=== PATIENT | male | born 1950 | race Caucasian/White ===

== ENCOUNTER 2016-07-12 10:38 | Outpatient (CLI) | payer MEDICARE ==
[2016-07-12 12:27] LABS: #Basophils 0.1 thou/uL (0.0-0.2); #Eosinphils 0.8 thou/uL (0.0-0.7); #Lymphocytes 3.4 thou/uL (1.20-3.40); #Monocytes 0.8 thou/uL (0.11-0.59); #Neutrophils 7.5 thou/uL (1.40-6.50); %Basophils 0.6 % (0.0-1.0); %Eosinophils 6.1 % (0.0-10.0); %Monocytes 6.3 % (0.0-10.0); Hematocrit 50.6 % (42.0-52.0); Mean Platelet Volume 8.7 fL (7.4-10.4); Red Blood Cell (RBC) Count 5.42 mill/uL (4.70-6.10); White Blood Cell (WBC) Count 12.5 thou/uL (4.8-10.8)
[2016-07-12 12:55] LABS: ALT (SGPT) 26 U/L (0-55); AST (SGOT) 22 U/L (5-34); Alkaline Phosphatase 102 U/L (40-150); Anion Gap 14 mmol/L (10-20); BUN (Urea Nitrogen) 16 mg/dL (8.4-25.7); Bilirubin, Total 0.3 mg/dL (0.2-1.2); Calc. Creatinine Clearance 0 mL/min (70-130); Calcium 8.8 mg/dL (7.8-10.44); Carbon Dioxide 24 mmol/L (23-31); Chloride 106 mmol/L (98-107); Estimated GFR-MDRD 69; Globulin 2.9 g/dL (2.4-3.5); LDL Cholesterol, Calculated 132 mg/dL
== END 2016-07-12 10:39 | disposition home or self-care (01) ==
LOC: HPCALD 10:38
PROVIDERS: ATTEND Family Medicine
DX: I10 Essential (primary) hypertension (principal)
CPT/HCPCS: 36415; 80053; 80061; 84443; 85025

== ENCOUNTER 2017-07-22 15:12 | Outpatient (CLI) | payer MEDICARE ==
--- NOTE | 2017-07-22 22:02 | RAD ---
CHEST TWO VIEWS: 07/22/17 Comparison is made with a 08/19/13 study. Patchy parenchymal opacities are seen around the left hilum and on the lateral view there appears to be some consolidation in the left upper lobe. The lung markings are a bit coarse in the right lower l obe, but this is probably chronic fibrotic change. The patient does have COPD. The heart is unchanged in size and within normal limits for age. Median sternotomy sutures are seen from prior surgery. Art eriosclerotic change is present in the aorta. IMPRESSION: 1. Patchy parenchymal densities in the left upper lobe, most likely pneumonia. Nevertheless, thi s patient should be followed to complete clearing to be sure that none of this is other pathology. If he does not clear appropriately, then a CT will be needed to investigate this more closely to be jose e there are no masses here. 2. COPD with basilar fibrotic changes. Code T POS: HOME
== END 2017-07-22 15:13 | disposition home or self-care (01) ==
LOC: BURRAD 15:12
PROVIDERS: ATTEND Family Medicine
DX: J44.1 Chronic obstructive pulmonary disease with (acute) exacerbation (principal); R91.8 Other nonspecific abnormal finding of lung field
CPT/HCPCS: 71046

== ENCOUNTER 2017-08-04 13:33 | Outpatient (CLI) | payer MEDICARE ==
--- NOTE | 2017-08-04 20:51 | RAD ---
CHEST TWO VIEWS 08/04/17 Comparison is made with the 07/22/17 study. There is slight improvement in the left perihilar densitie s, though the area is not completely clear at the moment. There is haziness in the right base that adams s not changed. No new infiltrates are present. COPD is noted as usual. Cardiomegaly is about the thiago e as before and there is no congestive change. IMPRESSION: COPD with right basilar haziness that is probably chronic. There is still some left perihilar density . The appearance of the chest is certainly no worse and probably slightly better than 07/22, however, I still feel that this patient may ultimately need a CT of the chest to completely clear him of under lying pathology. Code T. POS: HOME
== END 2017-08-04 13:34 | disposition home or self-care (01) ==
LOC: BURRAD 13:33
PROVIDERS: ATTEND Family Medicine
DX: J44.1 Chronic obstructive pulmonary disease with (acute) exacerbation (principal); J98.4 Other disorders of lung
CPT/HCPCS: 71046

== ENCOUNTER 2017-08-10 08:45 | Outpatient (CLI) | payer MEDICARE ==
--- NOTE | 2017-08-10 17:56 | CT ---
CT OF THE THORAX WITH CONTRAST 08/10/[address] of the thorax was performed for evaluation of shortness of breath in this patient with emph ysema. He started a new medication recently. A chest film done several days ago showed some patchy pa renchymal densities and a questionable area around the left hilum. Today's exam acquired axial slices and was followed by coronal reconstructions. There is a somewhat spiculated 3.5 cm mass in the left hilum that is extrinsically compressing the le ft pulmonary artery branches going to the lower lobe quite a bit. It is somewhat difficult to see how blood is passing this point, though there is obvious venous return from this lobe. I cannot see any firm evidence of tumor or mass within a pulmonary artery, rather, it all looks extrinsically compress ed by this mass. There is a small left pleural effusion. There is also a little area of parenchymal d ensity in the posterior part of the left lower lobe that might even be a small cavity. The lungs othe rwise showed some very minor bulla or blebs, mainly in the upper lobes and some fibrotic changes thro ughout the lungs. Some dependent atelectasis is seen in the right lower lobe. The mediastinum was remarkable for the left hilar mass, but I do not see a plethora of adenopathy in the mediastinum. There is one inferior tracheobronchial node that is just anterior to the bifurcation that measures about 1.7 cm in size. The coronary arteries are calcified and there has been a prior C ABG. The scans went a short ways into the upper abdomen. There does appear to be a small 1.3 cm left adren al nodule. While fairly benign in appearance in and of itself, given the findings in the chest, one c annot ensure this. No masses were seen in the visible portions of the liver. The upper portions of th e kidneys appear normal except for some minimal cysts. IMPRESSION: 1. 3.5 cm left hilar mass causing extrinsic compression of the pulmonary arterial branches going to the left lower lobe. There was also some compression/encasement of the bronchus in this region. 2. Small left pleural effusion. Small rounded density in the posterior part of the left lower lo be that may have a small cavity in it. 3. 1.3 cm left adrenal mass of indeterminate significance. 4. Diffuse emphysematous changes. Findings discussed with Dr. West in Dr. Bah's absence at [id number] on . POS: HOME
== END 2017-08-10 08:46 | disposition home or self-care (01) ==
LOC: BURCT 08:45
PROVIDERS: ATTEND Family Medicine
DX: J43.9 Emphysema, unspecified (principal); J90 Pleural effusion, not elsewhere classified; E27.8 Other specified disorders of adrenal gland; R91.8 Other nonspecific abnormal finding of lung field
CPT/HCPCS: 71260